=== PATIENT | female | born 1985 | race Two or more races ===

== ENCOUNTER 2018-09-23 18:47 | Emergency (ER) | payer OTHER ==
[~2018-09-23] VITALS: Ht 170.2 cm; Wt 98.2 kg
--- NOTE | 2018-09-23 19:12 | NUR ---
PATIENT TO ROOM 3 AT THIS TIME. ASSUMED CARE.
[2018-09-23] MEDS ORDERED: ONDANSETRON 2MG/ML, 2ML ONE (19:41)
[2018-09-23] MEDS ORDERED: HYDROmorphone 2 MG/ML, 1ML ONE ×2 (19:41→21:44)
[2018-09-23] MEDS: HYDROmorphone 2 MG/ML, 1ML IVPush PRN ×2 (19:46→21:47)
[2018-09-23] MEDS ORDERED: MAALOX/HYOSCYAMINE/LIDOCAINE 45 ML BTL ONE (19:49)
[2018-09-23] MEDS ORDERED: KETOROLAC 30 MG/1 ML ONE (19:49)
[2018-09-23] MEDS ORDERED: KETOROLAC 30 MG/1 ML IVPush ONE (20:00)
[2018-09-23] MEDS ORDERED: ONDANSETRON 2MG/ML, 2ML IVPush ONE (20:00)
[2018-09-23] MEDS ORDERED: SODIUM CHLORIDE 0.9% 1,000ML IVBOLUS ONE (20:00)
[2018-09-23] MEDS ORDERED: SODIUM CHLORIDE FLUSH 10ML SYR IVF ONE (20:00)
[2018-09-23] MEDS ORDERED: MAALOX/HYOSCYAMINE/LIDOCAINE 45 ML BTL PO ONE (20:00)
[2018-09-23 20:01] LABS: BASOPHILS # (AUTO) 0.02 x10^3/uL (0-0.1); BASOPHILS % (AUTO) 0 % (0-1); EOSINOPHILS # (AUTO) 0.35 x10^3/uL (0-0.4); EOSINOPHILS % (AUTO) 2 % (1-7); LYMPHOCYTES # (AUTO) 1.76 x10^3/uL (1-3.4); LYMPHOCYTES % (AUTO) 11 % (22-44); MD NO; MEAN CORPUSCULAR HEMOGLOBIN 29.2 pg (27.0-34.8); MEAN CORPUSCULAR HGB CONC 33.6 g/dL (32.4-35.8); MEAN CORPUSCULAR VOLUME 86.9 fL (80-100); MEAN PLATELET VOLUME 8.8 fL (7.4-10.4); MONOCYTES # (AUTO) 0.65 x10^3/uL (0.2-0.8); MONOCYTES % (AUTO) 4 % (2-9); NEUTROPHILS # (AUTO) 13.21 x10^3/uL (1.8-6.8); NEUTROPHILS % (AUTO) 83 % (42-75); PLATELET COUNT 302 x10^3/uL (130-400); RED BLOOD COUNT 5.19 x10^6/uL (3.82-5.3); RED CELL DISTRIBUTION WIDTH 16.2 % (9.6-15.2)
--- NOTE | 2018-09-23 20:02 | NUR ---
PATIENT RESTING IN BED W/ CALL LIGHT IN REACH. SPOUSE AT BEDSIDE, PT PROVIDED W/ WARM BLANKET FOR COMFORT. FLUIDS INFUSING. PENDING LAB RESULTS AND CT SCAN. NO QUESTIONS OR CONCERNS AT HTIS TIME.
[2018-09-23 20:09] LABS: ALANINE AMINOTRANSFERASE 34 U/L (12-78); ALBUMIN 4.4 g/dL (3.4-5.0); ANION GAP 11 mmol/L (5-15); CALCIUM 9.4 mg/dL (8.5-10.1); CHLORIDE 106 mmol/L (98-107); CREATININE 0.91 mg/dL (0.55-1.02)
[2018-09-23 20:14] LABS: ALKALINE PHOSPHATASE 88 U/L (45-117); BILIRUBIN,TOTAL 0.9 mg/dL (0.2-1.0); TOTAL PROTEIN 8.5 g/dL (6.4-8.2)
[2018-09-23 20:20] LABS: MICROSCOPIC INDICATED
--- NOTE | 2018-09-23 20:31 | NUR ---
PT TO CT SCAN AT THIS TIME. PT REPORTS RELEIF FOLLOWING PAIN MEDICINE. RESTING IN BED W/O DISTRESS AT THIS TIME. FLUIDS COMPLETED AND DISCONNECTED. UPDATED PT AND SPOUSE ON POC.
--- NOTE | 2018-09-23 21:26 | NUR ---
PT RESTING IN BED ON CONTINUOUS PULSE OX. AWAITING UPDATE ON POC FROM PROVIDER RE: CT RESULTS. VSS. REPORTS 5/10 PAIN, INCREASING AFTER CT MOVEMENT. DISCUSSED W/ PROVIDER
--- NOTE | 2018-09-23 21:47 | NUR ---
PT RESTING IN BED W/ SPOUSE AT BEDSIDE. AWAITING BETTERPAIN CONTROL AT THIS TIME. FAMILY AWARE OF PLAN AND NO QUESTIONS OR CONCERNS AT THIS TIME.
[2018-09-23 22:41] VITALS: BP 128/76
== END 2018-09-23 22:46 | disposition home or self-care (01) ==
LOC: ED 22:35
DX: N20.1 Calculus of ureter (principal); R31.9 Hematuria, unspecified; R11.2 Nausea with vomiting, unspecified; Z90.89 Acquired absence of other organs
CPT/HCPCS: 36415; 74176; 80053; 81001; 83690; 84703; 85025; 96361; 96374; 96375; 96376; 99284; J1170; J1885; J2405; J7030

== ENCOUNTER 2018-10-14 23:17 | Emergency (ER) | payer OTHER ==
[~2018-10-14] VITALS: Ht 170.2 cm; Wt 99.4 kg
[2018-10-15 02:07] VITALS: BP 111/75
== END 2018-10-15 03:06 | disposition home or self-care (01) ==
LOC: ED 10-15 02:00
DX: N20.2 Calculus of kidney with calculus of ureter (principal); Z90.89 Acquired absence of other organs; Z90.49 Acquired absence of other specified parts of digestive tract
CPT/HCPCS: 36415; 76770; 80048; 81001; 81025; 82040; 85025; 96361; 96374; 96375; 99284; J0330; J0690; J1100; J1170; J1885; J2270; J2405; J2704; J2710; J3010; J7030

== ENCOUNTER 2018-10-15 14:03 | Inpatient (IN) | payer OTHER ==
[~2018-10-15] VITALS: Ht 170.2 cm; Wt 103.8 kg
[2018-10-16 08:33] VITALS: BP 106/68
== END 2018-10-16 11:00 | disposition home or self-care (01) | DRG 661 ==
LOC: ED 17:42 → EDIP 18:28 → 4NOR 21:34 → DCLOUNGE 10-16 10:48
PROVIDERS: ADMIT Urology; ATTEND Urology
PROC: 0TC78ZZ Extirpation of Matter from Left Ureter, Via Natural or Artificial Opening Endoscopic (ICD-10-PCS; principal; 2018-10-15)
PROC: 0T778DZ Dilation of Left Ureter with Intraluminal Device, Via Natural or Artificial Opening Endoscopic (ICD-10-PCS; 2018-10-15)
DX: N13.2 Hydronephrosis with renal and ureteral calculous obstruction (principal); D72.829 Elevated white blood cell count, unspecified; Z80.3 Family history of malignant neoplasm of breast; Z87.442 Personal history of urinary calculi; Z90.49 Acquired absence of other specified parts of digestive tract
CPT/HCPCS: 36415; 74018; 76000; 80048; 81025; 82040; 82360; 85025; 88300; 96374; 96375; 96376; G0378; J0690; J1100; J1170; J1885; J2175; J2405; J2550; J2704; J3010; C2617; J0330; J7030; J7120

== ENCOUNTER 2020-11-24 10:02 | Day surgery (SDC) | payer OTHER ==
[2020-11-21 11:54] LABS: BASOPHILS % (AUTO) 1 % (0-1); EOSINOPHILS % (AUTO) 2 % (1-7); LYMPHOCYTES % (AUTO) 26 % (22-44); MEAN CORPUSCULAR HEMOGLOBIN 31.6 pg (27.0-34.8); MEAN CORPUSCULAR HGB CONC 35.3 g/dL (32.4-35.8); MEAN PLATELET VOLUME 8.7 fL (7.4-10.4); MONOCYTES % (AUTO) 6 % (2-9); NEUTROPHILS % (AUTO) 66 % (42-75); PLATELET COUNT 250 x10^3/uL (130-400); RED BLOOD COUNT 4.81 x10^6/uL (3.82-5.3)
[2020-11-21 11:56] LABS: MICROSCOPIC AUTO
[2020-11-21 12:05] LABS: ALANINE AMINOTRANSFERASE 23 U/L (12-78); ANION GAP 6 mmol/L (5-15); CHLORIDE 111 mmol/L (98-107); CREATININE 0.79 mg/dL (0.55-1.02)
[2020-11-21 12:09] LABS: ALKALINE PHOSPHATASE 80 U/L (45-117); BILIRUBIN,TOTAL 0.6 mg/dL (0.2-1.0); TOTAL PROTEIN 7.7 g/dL (6.4-8.2)
[~2020-11-24] VITALS: Ht 170.2 cm; Wt 89.7 kg
[~2020-11-24 10:02] MED LIST: ALPR0.254 PO; ASCO100018 PO; BACL-19 PO; CALC-534 PO; CEFU500T50 PO; CHOL100011 PO; FENTANYL PF 250 MCG/5ML ONE; HYDR-2214 PO; MIDAZOLAM 1 MG/ML, 2ML ONE; OMEP40CA8 PO; PHEN-582 PO; TAMS-11 PO; TOPI50TA8 PO; folic acid PO
[2020-11-24 10:35] VITALS: BP 122/79
[2020-11-24] MEDS ORDERED: BUPIVACAINE/PF 0.25% ONE (10:46)
[2020-11-24] MEDS ORDERED: EPINEPHRINE 1 MG/ML, 1ML ONE (10:46)
[2020-11-24] MEDS ORDERED: FLUORESCEIN SODIUM 500 MG/5 ML ONE (10:46)
[2020-11-24] MEDS ORDERED: LACTATED RINGERS 1,000 ML IV SCH (11:00)
[2020-11-24] MEDS ORDERED: CHLORHEXIDINE 15 ML UDC PO ONE (11:00)
[2020-11-24] MEDS ORDERED: PROPOFOL 50 ML ONE ×2 (11:31→12:33)
[2020-11-24] MEDS ORDERED: HYDROcodone/APAP 5/325 TABLET PO PRN (12:00)
[2020-11-24] MEDS ORDERED: HYDR-2214 PO (12:00)
[2020-11-24] MEDS ORDERED: PROMETHAZINE 25 MG/ML, 1ML IVPush PRN (12:30)
[2020-11-24] MEDS ORDERED: MEPERIDINE/PF 25MG/0.5ML IVPush PRN (12:30)
[2020-11-24] MEDS ORDERED: ALBUTEROL SULFATE 2.5 MG/3 ML NPPB PRN (12:30)
[2020-11-24] MEDS ORDERED: OXYcodone 5 MG/5 ML ORAL.SOL UDC PO PRN (12:30)
[2020-11-24] MEDS ORDERED: LABETALOL 5MG/ML, 20ML IV PRN (12:30)
[2020-11-24] MEDS ORDERED: DIPHENHYDRAMINE 50 MG/ML, 1ML IVPush PRN (12:30)
[2020-11-24] MEDS ORDERED: KETOROLAC 30 MG/1 ML IV PRN (12:30)
[2020-11-24] MEDS ORDERED: FENTANYL PF 250 MCG/5ML ONE (13:01)
[2020-11-24] MEDS ORDERED: FENTANYL PF 100 MCG/2ML ONE ×2 (13:49→14:35)
[2020-11-24] MEDS: FENTANYL PF 100 MCG/2ML IV PRN ×3 (13:51→14:37)
[2020-11-24] MEDS ORDERED: HYDROmorphone 2 MG/ML, 1ML ONE (13:58)
[2020-11-24] MEDS: HYDROmorphone 1 MG/ML, 1ML INJ IVPush PRN ×3 (14:02→14:29)
== END 2020-11-24 17:30 | disposition home or self-care (01) ==
LOC: OR 10:02 → OUT 17:30
PROVIDERS: ATTEND Obstetrics & Gynecology
DX: N93.9 Abnormal uterine and vaginal bleeding, unspecified (principal); N94.6 Dysmenorrhea, unspecified; N83.292 Other ovarian cyst, left side; G43.909 Migraine, unspecified, not intractable, without status migrainosus; F41.9 Anxiety disorder, unspecified; K21.9 Gastro-esophageal reflux disease without esophagitis; Z20.822 Contact with and (suspected) exposure to COVID-19; Z79.899 Other long term (current) drug therapy; Z88.5 Allergy status to narcotic agent; Z90.49 Acquired absence of other specified parts of digestive tract; Z98.890 Other specified postprocedural states; Z80.3 Family history of malignant neoplasm of breast
CPT/HCPCS: 36415; 58552; 58662; 80053; 81001; 81025; 84702; 85025; 86850; 86900; 87086; 88307; J0171; J1170; J1885; J2250; J2704; J3010; J7120; U0003; U0005